=== PATIENT | female | born 1940 | race Caucasian/White ===

== ENCOUNTER → 2017-07-02 | Outpatient (RCR) | payer MEDICARE, OTHER ==
[~2017-07-02] MED LIST: Z.0.ASPIRIN CHEW81 M; Z.0.LEVOCETIRIZINE D PO; Z.0.VYTORIN 10-201 E PO; Z.1.FISH OIL 1,2001 PO; Z.2.TRIAMTERENE-HC1 PO
== END ==
LOC: PT 06-11 16:04
PROVIDERS: ATTEND Specialist
DX: M75.42 Impingement syndrome of left shoulder (principal); M75.41 Impingement syndrome of right shoulder; M25.512 Pain in left shoulder; M25.511 Pain in right shoulder; M25.612 Stiffness of left shoulder, not elsewhere classified; M25.611 Stiffness of right shoulder, not elsewhere classified
CPT/HCPCS: 97010 ×4; 97110 ×9; 97139; 97162; G8984 ×2; G8985 ×2

== ENCOUNTER 2017-08-01 08:00 | Outpatient (RCR) | payer MEDICARE, OTHER | END 2017-08-02 | LOC: PT 08:00 | PROVIDERS: ATTEND Specialist | DX: M75.41 Impingement syndrome of right shoulder (principal); M75.42 Impingement syndrome of left shoulder | CPT/HCPCS: 97010 ×4; 97110 ×7; 97139; G8985; G8986 ==

== ENCOUNTER 2019-10-01 14:54 | Outpatient (RCR) | payer MEDICARE, OTHER | END 2019-10-03 | LOC: PT 14:54 | PROVIDERS: ATTEND Specialist | DX: M17.11 Unilateral primary osteoarthritis, right knee (principal); M25.561 Pain in right knee; M62.81 Muscle weakness (generalized); R26.9 Unspecified abnormalities of gait and mobility ==

== ENCOUNTER 2019-11-01 15:56 | Outpatient (RCR) | payer MEDICARE, OTHER | END 2019-11-02 | LOC: PT 15:56 | PROVIDERS: ATTEND Specialist | DX: M17.11 Unilateral primary osteoarthritis, right knee (principal); M62.81 Muscle weakness (generalized); M25.561 Pain in right knee; R26.9 Unspecified abnormalities of gait and mobility | CPT/HCPCS: 97139 ==

== ENCOUNTER 2019-11-10 16:00 | Outpatient (RCR) | payer MEDICARE, OTHER | END 2019-12-03 | LOC: PT 16:00 | PROVIDERS: ATTEND Specialist | DX: M17.11 Unilateral primary osteoarthritis, right knee (principal); M25.561 Pain in right knee; R26.9 Unspecified abnormalities of gait and mobility | CPT/HCPCS: 97139 ==

== ENCOUNTER 2021-02-06 10:27 | Emergency (ER) | payer MEDICARE, OTHER ==
[~2021-02-06] VITALS: Ht 162.6 cm; Wt 106.6 kg
[2021-02-06] MEDS ORDERED: CASIRIVIMAB/IMDEVIMAB 10 ML in SODIUM CHLORIDE 0.9% 100 ML IV ONE (10:45)
== END 2021-02-06 11:39 | disposition home or self-care (01) ==
LOC: ER 10:35
DX: U07.1 COVID-19 (principal); R05.9 Cough, unspecified; E78.5 Hyperlipidemia, unspecified; E78.00 Pure hypercholesterolemia, unspecified
CPT/HCPCS: 99282; J7050